=== PATIENT | male | born 1990 | race Caucasian/White ===

== ENCOUNTER 2021-10-10 13:24 | Emergency (ER) | payer OTHER, SELFPAY ==
[2021-10-10 15:18] VITALS: BP 135/93; PULSE 82; RESP 18; TEMP 36.4; O2SAT 100
--- NOTE | 2021-10-10 15:39 | ED.SKABFB ---
HPI - Skin/Abscess/Foreign Bdy General Chief complaint: Skin/Abscess/Foreign Body Stated complaint: sorethroat,rash Time Seen by Provider: 10/10/21 15:39 Source: patient and RN notes reviewed Mode of arrival: ambulatory Limitations: no limitations History of Present Illness HPI narrative: Patient presents today requesting a note to return to work. His son was positive for [id number]-mouth 3 weeks ago, and his was subsequently got symptoms a few days later. He developed symptoms to include fever, vomiting, chills, rash to his hands and feet. Symptoms have been improving and he has not had a fever for 4 days. His work is requiring him to have a note that it is safe for him to return to work. MD complaint: rash Related Data Home Medications Medication Instructions Recorded Confirmed No Home Medications 10/10/21 10/10/21 Allergies Allergy/AdvReac Type Severity Reaction Status Date / Time No Known Allergies Allergy Verified 10/10/21 15:27 Review of Systems Review of Systems: CONSTITUTIONAL: Denies body aches, fever, chills, or sweats. EYES: Denies visual changes, redness, or discharge. ENT: Denies rhinorrhea, congestion, sore throat, or otalgia. CARDIOVASCULAR: Denies chest pain, palpitations, or edema. RESPIRATORY: Denies cough or dyspnea. GASTROINTESTINAL: Denies abdominal pain, nausea, vomiting, or diarrhea. GENITOURINARY: Denies dysuria or hematuria. SKIN: + Rash MUSCULOSKELETAL: Denies back pain, joint pain, or myalgia. NEUROLOGIC: Denies headache, numbness, tingling, or weakness. PSYCH: Denies depression or anxiety. PMFSH Comments At time of signature, I have reviewed and agree with nursing past medical, surgical, social and family history unless otherwise noted. Please see nursing chart for further information. There is no relevant family history pertinent to the presenting complaint Exam Narrative: GENERAL: Well-appearing, well-nourished, and in no acute distress. HEAD: Normocephalic, atraumatic. EYES: EOMI. No redness or drainage. Conjunctivae normal. ENT: Mucous membranes pink and moist. Nares clear. No rhinorrhea. TMs normal bilaterally. Throat normal. Uvula midline. No lesions inside the mouth NECK: Normal AROM. Supple. No lymphadenopathy. CHEST: No respiratory distress. Clear to auscultation. HEART: Regular rate and rhythm. No murmur appreciated. Normal peripheral pulses. EXTREMITIES: Normal range of motion. No edema. SKIN: Warm, dry. Capillary refill normal. Normal skin turgor. Scattered round lesions that are small and dark in color, macular to the palms of the hands and bilateral feet. Patient has no open wounds or lesions. NEURO: No focal deficits. Alert and oriented x3. Gait steady. PSYCH: Normal affect. No signs of depression or anxiety. Course Course Level of Care: Express Care Visit Vital Signs Vital signs: Vital Signs Temperature 97.6 F 10/10/21 15:18 Pulse Rate 82 10/10/21 15:18 Respiratory Rate 18 10/10/21 15:18 Blood Pressure 135/93 H 10/10/21 15:18 Pulse Oximetry 100 10/10/21 15:18 Temperature 97.6 F 10/10/21 15:18 Pulse Rate 82 10/10/21 15:18 Respiratory Rate 18 10/10/21 15:18 Blood Pressure 135/93 H 10/10/21 15:18 Pulse Oximetry 100 10/10/21 15:18 Reviewed. Pt has been instructed to follow up with his PCP regarding his elevated blood pressure today. MDM - Skin/Abscess/Foreign Bdy Differential Diagnosis Differential diagnosis: Likely abscess of skin or subcutaneous tissue, viral exanthem, cellulitis, eczema and impetigo Critical Care Time Critical Care Time Critical Care Time: No Discharge Plan Discharge Clinical Impression: Hand, foot and mouth disease (HFMD) Patient Disposition: Home, Self-Care Condition: Stable Instructions: Hand, Foot, and Mouth Disease (ED) Additional Instructions: After evaluation, you are cleared to return to work. Your blood pressure was elevated above 120/80 today at Urgent C
== END 2021-10-10 15:48 | disposition home or self-care (01) ==
PROVIDERS: Emergency Provider Nurse Practitioner
DX: B08.4 Enteroviral vesicular stomatitis with exanthem (principal)
CPT/HCPCS: 99202; G0463